=== PATIENT | male | born 1970 | race Caucasian/White ===

== ENCOUNTER 2025-03-14 16:27 | Emergency (ER) | payer BC, MEDICAID, SELFPAY ==
[2025-03-14 16:28] VITALS: BMI 29.8
--- NOTE | 2025-03-14 16:37 | XRR_ITS ---
PROCEDURE INFORMATION: Exam: XR Chest Exam date and time: 03/14/2025 5:11 PM Age: 54 years old Clinical indication: Injury or trauma; Fall; Blunt trauma (contusions or hematomas) TECHNIQUE: Imaging protocol: Radiologic exam of the chest. Views: 1 view. COMPARISON: CT cervical spin wo con* [id number] 03/14/2025 5:08 PM FINDINGS: Lungs: Low lung volumes with associated perihilar fullness and bibasilar compression. No focal consolidation. Pleural spaces: Unremarkable. No pleural effusion. No pneumothorax. Heart/Mediastinum: Unremarkable. No cardiomegaly. Bones/joints: Unremarkable. XR/XR chest 1V portable [id number] IMPRESSION: No acute cardiopulmonary abnormality.
--- NOTE | 2025-03-14 16:37 | CTR_ITS ---
PROCEDURE INFORMATION: Exam: CT Head Without Contrast Exam date and time: 03/14/2025 5:08 PM Age: 54 years old Clinical indication: Injury or trauma; History--pt presents with decreased loc [place] EMS reports patient had seizure in route and was given 2 MG ativan. Patient also has ETOH on board per EMS. Patient presenting in c-collar. Patent airway, unlabored respirations, and appropriate color. ; Additional info: Fall TECHNIQUE: Imaging protocol: Computed tomography of the head without contrast. Radiation optimization: All CT scans at this facility use at least one of these dose optimization techniques: automated exposure control; mA and/or kV adjustment per patient size (includes targeted exams where dose is matched to clinical indication); or iterative reconstruction. COMPARISON: CT cervical spin wo con* [id number] 03/14/2025 5:08 PM RADIATION DOSE METRICS: Total DLP (mGy-cm): 1250.1 FINDINGS: Brain: No acute intracranial hemorrhage. No territorial infarction. Cerebral ventricles: No ventriculomegaly. Paranasal sinuses: Moderate paranasal mucosal sinus thickening. Mastoid air cells: Visualized mastoid air cells are well aerated. Bones: Multiple displaced nasal bone fractures. Soft tissues: Unremarkable. PROCEDURE INFORMATION: Exam: CT Cervical Spine Without Contrast Exam date and time: 03/14/2025 5:08 PM Age: 54 years old Clinical indication: Injury or trauma; History--pt [place] EMS reports patient had seizure in route and was given 2 MG ativan. Patient also has ETOH on board per EMS. Patient presenting in c-collar. Patent airway, unlabored respirations, and appropriate color. ; Additional info: Fall TECHNIQUE: Imaging protocol: Computed tomography of the cervical spine without contrast. Radiation optimization: All CT scans at this facility use at least one of these dose optimization techniques: automated exposure control; mA and/or kV adjustment per patient size (includes targeted exams where dose is matched to clinical indication); or iterative reconstruction. COMPARISON: CT head wo con* [id number] 03/14/2025 5:08 PM RADIATION DOSE METRICS: Total DLP (mGy-cm): 265.9 FINDINGS: Bones: The odontoid and ring of C1 are intact. Moderate to severe multilevel degenerative disease of the cervical spine. Multilevel degenerative disc disease, facet joint arthropathy with associated foraminal stenosis and disc osteophyte complexes with associated effacement of the thecal sac most prominently seen at C5-C6 and C6-C7. Lungs: Moderate paraseptal emphysematous changes noted in the upper lobes bilaterally [id number]-[id number]-frak-left. Dependent atelectasis partially visualized. Esophagus: The esophagus is patulous, fluid-filled with circumferential esophageal wall thickening up to the level of the thoracic inlet. Thyroid: The visualized portions of the thyroid gland are unremarkable. Lymph nodes: Multiple prominent cervical lymph nodes none meeting pathological criteria. Soft tissues: Unremarkable. CT/CT head wo con* [id number] IMPRESSION: 1. No acute intracranial abnormality. 2. Multiple displaced nasal bone fractures. Correlate with point tenderness to assess acuity. IMPRESSION: 1. No acute cervical spine fracture or dislocation. 2. Moderate to severe multilevel degenerative disease of the cervical spine. 3. The esophagus is patulous with fluid/debris noted intraluminally up to the level of the thoracic inlet with circumferential esophageal wall thickening. Findings may represent reflux/esophagitis. This finding raises the risk for aspiration. 4. Paraseptal emphysematous changes noted at the lung apices [id number]-hffs-left.
--- NOTE | 2025-03-14 16:37 | CTR_ITS ---
PROCEDURE INFORMATION: Exam: CT Head Without Contrast Exam date and time: 03/14/2025 5:08 PM Age: 54 years old Clinical indication: Injury or trauma; History--pt [place] EMS reports patient had seizure in route and was given 2 MG ativan. Patient also has ETOH on board per EMS. Patient presenting in c-collar. Patent airway, unlabored respirations, and appropriate color. ; Additional info: Fall TECHNIQUE: Imaging protocol: Computed tomography of the head without contrast. Radiation optimization: All CT scans at this facility use at least one of these dose optimization techniques: automated exposure control; mA and/or kV adjustment per patient size (includes targeted exams where dose is matched to clinical indication); or iterative reconstruction. COMPARISON: CT cervical spin wo con* [id number] 03/14/2025 5:08 PM RADIATION DOSE METRICS: Total DLP (mGy-cm): 1250.1 FINDINGS: Brain: No acute intracranial hemorrhage. No territorial infarction. Cerebral ventricles: No ventriculomegaly. Paranasal sinuses: Moderate paranasal mucosal sinus thickening. Mastoid air cells: Visualized mastoid air cells are well aerated. Bones: Multiple displaced nasal bone fractures. Soft tissues: Unremarkable. PROCEDURE INFORMATION: Exam: CT Cervical Spine Without Contrast Exam date and time: 03/14/2025 5:08 PM Age: 54 years old Clinical indication: Injury or trauma; History--pt presents [place] EMS reports patient had seizure in route and was given 2 MG ativan. Patient also has ETOH on board per EMS. Patient presenting in c-collar. Patent airway, unlabored respirations, and appropriate color. ; Additional info: Fall TECHNIQUE: Imaging protocol: Computed tomography of the cervical spine without contrast. Radiation optimization: All CT scans at this facility use at least one of these dose optimization techniques: automated exposure control; mA and/or kV adjustment per patient size (includes targeted exams where dose is matched to clinical indication); or iterative reconstruction. COMPARISON: CT head wo con* [id number] 03/14/2025 5:08 PM RADIATION DOSE METRICS: Total DLP (mGy-cm): 265.9 FINDINGS: Bones: The odontoid and ring of C1 are intact. Moderate to severe multilevel degenerative disease of the cervical spine. Multilevel degenerative disc disease, facet joint arthropathy with associated foraminal stenosis and disc osteophyte complexes with associated effacement of the thecal sac most prominently seen at C5-C6 and C6-C7. Lungs: Moderate paraseptal emphysematous changes noted in the upper lobes bilaterally trpkk-[id number]-qbop-left. Dependent atelectasis partially visualized. Esophagus: The esophagus is patulous, fluid-filled with circumferential esophageal wall thickening up to the level of the thoracic inlet. Thyroid: The visualized portions of the thyroid gland are unremarkable. Lymph nodes: Multiple prominent cervical lymph nodes none meeting pathological criteria. Soft tissues: Unremarkable. CT/CT cervical spin wo con* [id number] IMPRESSION: 1. No acute intracranial abnormality. 2. Multiple displaced nasal bone fractures. Correlate with point tenderness to assess acuity. IMPRESSION: 1. No acute cervical spine fracture or dislocation. 2. Moderate to severe multilevel degenerative disease of the cervical spine. 3. The esophagus is patulous with fluid/debris noted intraluminally up to the level of the thoracic inlet with circumferential esophageal wall thickening. Findings may represent reflux/esophagitis. This finding raises the risk for aspiration. 4. Paraseptal emphysematous changes noted at the lung apices ohdzg-[id number]-iokx-left.
--- NOTE | 2025-03-14 16:38 | ECG_ITS ---
[facility] [employer] Test Date: 2025-03-14 Pat Name: Colin Muhammad Department: Room: Gender: Male Analyst Sales: : 1970 Requested By: Doris Lozoya Order Number: [id number] Regina MD: Nhi Jj M.D. Measurements Intervals O'Brien Rate: 69 P: 17 MN: 161 QRS: 51 QRSD: 85 T: 48 QT: 357 QTc: 383 Interpretive Statements SINUS RHYTHM LOW QRS VOLTAGE IN PRECORDIAL LEADS [QRS DEFLECTION < 1.0 mV IN CHEST LEADS] No previous ECG available for comparison Electronically Signed On 03-16-2025 06:33:53 CDT by Nhi Jj M.D. [email or web address]
[2025-03-14 16:41] VITALS: BP 130/89; PULSE 79; RESP 19; TEMP 36.7; O2SAT 97
--- NOTE | 2025-03-14 16:42 | W.ED.FALL ---
Documented by User: Doris Lozoya MD 03/15/25 10:05 HPI - Fall General: Chief Complaint: Fall Stated Complaint: seizure; fall Time Seen by Provider: 03/14/25 16:29 Source: EMS Mode of arrival: EMS Limitations: altered mental status History of Present Illness: 54-year-old male is brought in patient was at a park he had been drinking heavily he admitted to EMS also has a history of drug abuse and he states that he had fell backwards hit his head bystanders called EMS patient in the c-collar EMS states that he had had some shaking and was combative unsure if he had a seizure but did give him 2 mg of Ativan he is he is able to tell me his name but not really able answer any other questions Review of Systems General: Reports: ROS unobtainable due to mental status Physical Exam Const: COMMON NORMALS: alert; negative for patient oriented x3 EXAM LIMITATIONS: altered mental status ORIENTATION/CONSCIOUSNESS: Yes oriented to person; not oriented to place and not oriented to time HENMT: COMMON NORMALS: normocephalic and atraumatic HEAD & SCALP: normocephalic and atraumatic Eye: COMMON NORMALS: Equal, round and reactive pupils present and conjunctivae normal CONJUNCTIVA: Yes conjunctivae normal PUPIL: Yes Equal, round and reactive pupils present Neck/C-Spine: OTHER: In c-collar Chest: COMMONS NORMALS: normal inspection of the chest and normal palpation of entire chest wall Resp: COMMON NORMALS: normal respiratory effort, No retractions, No use of accessory muscles and clear to auscultation bilaterally AUSCULTATION: clear to auscultation bilaterally Cardio: COMMON NORMALS: regular rate, regular rhythm and No murmurs present (Cardio) RATE: regular rate RHYTHM: regular rhythm GI: COMMON NORMALS: Normal to inspection, nondistended, normoactive bowel sounds present, Soft to palpation, non-tender and no masses PALPATION: Yes Soft to palpation Extremity: COMMON NORMALS: normal to inspection and full ROM Neuro: COMMON NORMALS: moves all extremities and no focal motor deficits; negative for patient oriented x3 SENSORIUM/ORIENTATION: Yes alert, Yes oriented to person, No oriented to place and No oriented to time Psych: COMMON NORMALS: cooperative Skin: COMMON NORMALS: no rashes or lesions noted and no wounds GENERAL SKIN EXAM: no rashes or lesions noted Course Vital Signs: Vital signs: Vital Signs Temperature 98.1 F 03/14/25 16:41 Pulse Rate 86 03/14/25 19:53 Respiratory Rate 16 03/14/25 19:53 Blood Pressure 162/63 03/14/25 19:53 Pulse Oximetry 92 03/14/25 19:53 Oxygen Delivery Me thod Room Air 03/14/25 19:53 Oxygen Flow Rate 2 03/14/25 16:41 MDM - Fall Medical Decision Making Patient's imaging is negative he is quite intoxicated his care is turned over to Dr. Luque at this time Medical Records I reviewed the patient's medical records. Lab Data I reviewed the patient's lab results. 03/14/25 16:39 03/14/25 17:30 Radiology Impressions Cervical Spine CT 03/14/25 16:37 IMPRESSION: 1. No acute intracranial abnormality. 2. Multiple displaced nasal bone fractures. Correlate with point tenderness to assess acuity. IMPRESSION: 1. No acute cervical spine fracture or dislocation. 2. Moderate to severe multilevel degenerative disease of the cervical spine. 3. The esophagus is patulous with fluid/debris noted intraluminally up to the level of the thoracic inlet with circumferential esophageal wall thickening. Findings may represent reflux/esophagitis. This finding raises the risk for aspiration. 4. Paraseptal emphysematous changes noted at the lung apices [id number]-[id number]-left. Chest X-Ray 03/14/25 16:37 IMPRESSION: No acute cardiopulmonary abnormality. Head CT 03/14/25 16:37 IMPRESSION: 1. No acute intracranial abnormality. 2. Multiple displaced nasal bone fractures. Correlate with point tenderness to assess acuity. IMPRESSION: 1. No acute cervical spine fracture or dislocation. 2. Moderate to severe multilevel degenerative disease of the cervical spine. 3. The esophagus is patulous with fluid/debris noted intraluminally up to the level of the thoracic inlet with circumferential esophageal wall thickening. Findings may represent reflux/esophagitis. This finding raises the risk for aspiration. 4. Paraseptal emphysematous changes noted at the lung apices smnlg-kqkxnsy-egzn-left. Laboratory Results WBC 9.26 10^3/uL (3.29-11.43) 03/14/25 16:39 RBC 4.99 10^6/uL (3.85-5.65) 03/14/25 16:39 Hgb 13.60 g/dL (11.27-16.99) 03/14/25 16:39 Hct 42.5 % (37-53) 03/14/25 16:39 MCV 85.2 fl (82-101) 03/14/25 16:39 MCH 27.3 pg (27-33) 03/14/25 16:39 MCHC 32.0 g/dL (30-55) 03/14/25 16:39 RDW 14.6 % (12.1-15.1) 03/14/25 16:39 Plt Count 308 10^3/cmm (157-399) 03/14/25 16:39 MPV 10.3 fL (7.4-10.4) 03/14/25 16:39 Neut % (Auto) 53.5 % 03/14/25 16:39 Lymph % (Auto) 34.2 % 03/14/25 16:39 [place] % (Auto) 7.8 % 03/14/25 16:39 Eos % (Auto) 3.8 % 03/14/25 16:39 Baso % (Auto) 0.4 % 03/14/25 16:39 Neut # (Auto) 4.95 10^3/uL (1.8-7.7) 03/14/25 16:39 Lymph # (Auto) 3.2 10^3/uL (0.8-4.8) 03/14/25 16:39 [place] # (Auto) 0.7 10^3/uL (0.2-0.9) 03/14/25 16:39 Eos # (Auto) 0.4 10^3/uL (0.0-0.8) 03/14/25 16:39 Baso # (Auto) 0.0 10^3/uL (0.0-0.1) 03/14/25 16:39 Nucleated RBC % (auto) 0 % 03/14/25 16:39 Nucleated RBCs # 0.0 /100WBC 03/14/25 16:39 Sodium 147 mmol/L (136-145) H 03/14/25 17:30 Potassium 4.2 mmol/L (3.5-5.1) 03/14/25 17:30 Chloride 108 mmol/L (98-107) H 03/14/25 17:30 Carbon Dioxide 26 mmol/L (22-29) 03/14/25 17:30 Anion Gap 17.2 (5-19) 03/14/25 17:30 BUN 7 mg/dL (6-20) 03/14/25 17:30 Creatinine 0.7 mg/dL (0.7-1.2) 03/14/25 17:30 GFR Calculation 118.4 mL/min (90-130) 03/14/25 17:30 Glucose 102 mg/dL (65-115) 03/14/25 17:30 Calculated Osmolality 302 mOsm/kg (285-295) H 03/14/25 17:30 Calcium 8.6 mg/dL (8.5-10.5) 03/14/25 17:30 Total Bilirubin 0.2 mg/dL (0.15-1.2) 03/14/25 17:30 AST 16 U/L (0-40) 03/14/25 17:30 ALT 15 U/L (0-41) 03/14/25 17:30 Alkaline Phosphatase 75 U/L (40-130) 03/14/25 17:30 Total Protein 6.9 g/dL (6.6-8.7) 03/14/25 17:30 Albumin 4.3 g/dL (3.5-5.2) 03/14/25 17:30 Globulin 2.6 g/dL (1.3-4.6) 03/14/25 17:30 Ethyl Alcohol 357 mg/dL (0-10) H* 03/14/25 17:30 All radiology interpretation(s) finalized by discharge Discharge Plan Discharge Patient Disposition: Home Clinical Impression: Alcohol intoxication, Closed fracture nasal bone Condition: Stable Discharge Orders: Discharge ED (Routine); Ordered 03/14/25 Ordered By: Oli Luque Patient Instructions: Nasal Fracture (ED), Alcohol Intoxication (ED), Opioid Safety, Pain Management Activity Restrictions/Additional Instructions: Abstain from alcohol. Call your doctor tomorrow. You will need follow-up appointment regarding your broken nose. Return for problems. Print Language: Cook Islander Coding Level of Care Code ED Division Service Manager for Chg Fwd Documented by User: Oli Luque DO 03/15/25 20:42 HPI - Fall General: Chief Complaint: Fall Stated Complaint: seizure; fall Time Seen by Provider: 03/14/25 16:29 Course Vital Signs: Vital signs: Vital Signs Temperature 98.1 F 03/14/25 16:41 Pulse Rate 86 03/14/25 19:53 Respiratory Rate 16 03/14/25 19:53 Blood Pressure 162/63 03/14/25 19:53 Pulse Oximetry 92 03/14/25 19:53 Oxygen Delivery Me thod Room Air 03/14/25 19:53 Oxygen Flow Rate 2 03/14/25 16:41 MDM - Fall Medical Decision Making Patient's imaging is negative he is quite intoxicated his care is turned over to Dr. Luque at this time This patient was checked out to me at shift change. he was quite intoxicated on arrival. He was agitated, belligerent. He was given intravenous haldol, and has slept for a few hours. He is awake currently. And he's compliant here and he has walked in the ER without problems and unassisted. He will be discharged home with a sober adult. To return for any problems. Lab Data 03/14/25 16:39 03/14/25 17:30 Radiology Impressions Cervical Spine CT 03/14/25 16:37 IMPRESSION: 1. No acute intracranial abnormality. 2. Multiple displaced nasal bone fractures. Correlate with point tenderness to assess acuity. IMPRESSION: 1. No acute cervical spine fracture or dislocation. 2. Moderate to severe multilevel degenerative disease of the cervical spine. 3. The esophagus is patulous with fluid/debris noted intraluminally up to the level of the thoracic inlet with circumferential esophageal wall thickening. Findings may represent reflux/esophagitis. This finding raises the risk for aspiration. 4. Paraseptal emphysematous changes noted at the lung apices cxbij-mproyai-ufjh-left. Chest X-Ray 03/14/25 16:37 IMPRESSION: No acute cardiopulmonary abnormality. Head CT 03/14/25 16:37 IMPRESSION: 1. No acute intracranial abnormality. 2. Multiple displaced nasal bone fractures. Correlate with point tenderness to assess acuity. IMPRESSION: 1. No acute cervical spine fracture or dislocation. 2. Moderate to severe multilevel degenerative disease of the cervical spine. 3. The esophagus is patulous with fluid/debris noted intraluminally up to the level of the thoracic inlet with circumferential esophageal wall thickening. Findings may represent reflux/esophagitis. This finding raises the risk for aspiration. 4. Paraseptal emphysematous changes noted at the lung apices daskv-rjvtakk-smvh-left. Laboratory Results WBC 9.26 10^3/uL (3.29-11.43) 03/14/25 16:39 RBC 4.99 10^6/uL (3.85-5.65) 03/14/25 16:39 Hgb 13.60 g/dL (11.27-16.99) 03/14/25 16:39 Hct 42.5 % (37-53) 03/14/25 16:39 MCV 85.2 fl (82-101) 03/14/25 16:39 MCH 27.3 pg (27-33) 03/14/25 16:39 MCHC 32.0 g/dL (30-55) 03/14/25 16:39 RDW 14.6 % (12.1-15.1) 03/14/25 16:39 Plt Count 308 10^3/cmm (157-399) 03/14/25 16:39 MPV 10.3 fL (7.4-10.4) 03/14/25 16:39 Neut % (Auto) 53.5 % 03/14/25 16:39 Lymph % (Auto) 34.2 % 03/14/25 16:39 [place] % (Auto) 7.8 % 03/14/25 16:39 Eos % (Auto) 3.8 % 03/14/25 16:39 Baso % (Auto) 0.4 % 03/14/25 16:39 Neut # (Auto) 4.95 10^3/uL (1.8-7.7) 03/14/25 16:39 Lymph # (Auto) 3.2 10^3/uL (0.8-4.8) 03/14/25 16:39 [place] # (Auto) 0.7 10^3/uL (0.2-0.9) 03/14/25 16:39 Eos # (Auto) 0.4 10^3/uL (0.0-0.8) 03/14/25 16:39 Baso # (Auto) 0.0 10^3/uL (0.0-0.1) 03/14/25 16:39 Nucleated RBC % (auto) 0 % 03/14/25 16:39 Nucleated RBCs # 0.0 /100WBC 03/14/25 16:39 Sodium 147 mmol/L (136-145) H 03/14/25 17:30 Potassium 4.2 mmol/L (3.5-5.1) 03/14/25 17:30 Chloride 108 mmol/L (98-107) H 03/14/25 17:30 Carbon Dioxide 26 mmol/L (22-29) 03/14/25 17:30 Anion Gap 17.2 (5-19) 03/14/25 17:30 BUN 7 mg/dL (6-20) 03/14/25 17:30 Creatinine 0.7 mg/dL (0.7-1.2) 03/14/25 17:30 GFR Calculation 118.4 mL/min (90-130) 03/14/25 17:30 Glucose 102 mg/dL (65-115) 03/14/25 17:30 Calculated Osmolality 302 mOsm/kg (285-295) H 03/14/25 17:30 Calcium 8.6 mg/dL (8.5-10.5) 03/14/25 17:30 Total Bilirubin 0.2 mg/dL (0.15-1.2) 03/14/25 17:30 AST 16 U/L (0-40) 03/14/25 17:30 ALT 15 U/L (0-41) 03/14/25 17:30 Alkaline Phosphatase 75 U/L (40-130) 03/14/25 17:30 Total Protein 6.9 g/dL (6.6-8.7) 03/14/25 17:30 Albumin 4.3 g/dL (3.5-5.2) 03/14/25 17:30 Globulin 2.6 g/dL (1.3-4.6) 03/14/25 17:30 Ethyl Alcohol 357 mg/dL (0-10) H* 03/14/25 17:30 Discharge Plan Discharge Patient Disposition: Home Clinical Impression: Alcohol intoxication, Closed fracture nasal bone Condition: Stable Discharge Orders: Discharge ED (Routine); Ordered 03/14/25 Ordered By: Oli Luque Patient Instructions: Nasal Fracture (ED), Alcohol Intoxication (ED), Opioid Safety, Pain Management Activity Restrictions/Additional Instructions: Abstain from alcohol. Call your doctor tomorrow. You will need follow-up appointment regarding your broken nose. Return for problems. Print Language: [place]er Coding Level of Care Code ED Division Service Manager for Diann Clark
[2025-03-14 16:45] LABS: Basophils % 0.4 %; Eosinophils # 0.4 10^3/uL (0.0-0.8); Eosinophils % 3.8 %; Hematocrit 42.5 % (37-53); Lymphocytes # 3.2 10^3/uL (0.8-4.8); Lymphocytes % 34.2 %; Mean Corpuscular Hemoglobin 27.3 pg (27-33); Mean Corpuscular Volume 85.2 fl (82-101); Mean Platelet Volume 10.3 fL (7.4-10.4); Monocytes # 0.7 10^3/uL (0.2-0.9); Monocytes % 7.8 %; Neutrophils # 4.95 10^3/uL (1.8-7.7); Neutrophils % 53.5 %; Nucleated Red Blood Cells % 0 %; Platelet Count 308 10^3/cmm (157-399); Red Blood Count 4.99 10^6/uL (3.85-5.65); Red Cell Distribution Width 14.6 % (12.1-15.1); White Blood Count 9.26 10^3/uL (3.29-11.43)
[2025-03-14 17:55] LABS: Alanine Aminotransferase 15 U/L (0-41); Albumin Level 4.3 g/dL (3.5-5.2); Alkaline Phosphatase 75 U/L (40-130); Anion Gap 17.2 (5-19); Aspartate Amino Transferase 16 U/L (0-40); Blood Urea Nitrogen 7 mg/dL (6-20); Calcium 8.6 mg/dL (8.5-10.5); Carbon Dioxide 26 mmol/L (22-29); Chloride 108 mmol/L (98-107); Creatinine Clr Calc Pharmacy 150.9898; Globulin 2.6 g/dL (1.3-4.6); Glomerular Filtration Rate 118.4 mL/min (90-130); Glucose 102 mg/dL (65-115); Osmolality Calculated 302 mOsm/kg (285-295); Potassium 4.2 mmol/L (3.5-5.1); Sodium 147 mmol/L (136-145); Total Bilirubin 0.2 mg/dL (0.15-1.2); Total Protein 6.9 g/dL (6.6-8.7)
[2025-03-14 17:57] LABS: Alcohol Level 357 mg/dL (0-10)
[2025-03-14] MEDS: thiamine 100 mg/mL 2mL SDV IVP (18:09)
[2025-03-14] MEDS: haloperidol inj 5 mg/mL INJ 1 mL IVP (18:10)
[2025-03-14 18:32] VITALS: BP 93/60; PULSE 76; RESP 17; O2SAT 98
[2025-03-14 19:53] VITALS: BP 162/63; PULSE 86; RESP 16; O2SAT 92
== END 2025-03-14 21:40 | disposition home or self-care (01) ==
PROVIDERS: Emergency Medicine; Emergency Provider Emergency Medicine
DX: S02.2XXA Fracture of nasal bones, initial encounter for closed fracture (principal); R41.82 Altered mental status, unspecified; F10.129 Alcohol abuse with intoxication, unspecified; W18.30XA Fall on same level, unspecified, initial encounter; Y92.830 Public park as the place of occurrence of the external cause
CPT/HCPCS: 36415; 70450; 71045; 72125; 80053; 80307; 85025; 93005; 96374; 96375; 99285; J1630; J3411

== ENCOUNTER 2025-05-24 10:45 | Inpatient (IN) | payer BC, MEDICAID, SELFPAY ==
[2025-05-24 10:50] VITALS: BMI 23.0
[2025-05-24 10:58] VITALS: BP 131/80; PULSE 95; RESP 16; TEMP 36.7; O2SAT 96
--- NOTE | 2025-05-24 11:06 | ED.C_ITS ---
HPI - Psych 2 General: Chief Complaint: Psychiatric Symptoms Stated Complaint: etoh, SI Time Seen by Provider: 05/24/25 10:53 History of Present Illness: 54-year-old male presents to the emergen cy room acutely intoxicated accompanied by PD brought in via EMS. He is highly intoxicated difficult to get history from he is intermittently angry and tearful. He had stated he wanted to kill himself using a gun and he made similar statements to me he denies having done anything to actually harm himself at this point. He has not been hospitalized at our facility for but he states he has been hospitalized for suicidal ideation in the past he evidently had gone through a alcohol recovery program somewhere else in the state despite this he started drinking again. Related Data Home Medications ?Medication ?Instructions ?Recorded ?Confirmed ibuprofen 800 mg tablet 800 mg PO DAILY PRN Pain 05/24/25 omeprazole 20 mg capsule,delayed 20 mg PO DAILY 05/24/25 release terbinafine HCl 250 mg tablet 250 mg PO DAILY 05/24/25 05/24/25 Review of Systems 2 Const: Denies: fever(s) or chills Card: Denies: chest pain Resp: Denies: dyspnea GI: Denies: abdominal pain : Denies: dysuria, urinary frequency or urinary urgency Musc: Denies: neck pain or back pain Skin/Breast: Denies: rash Physical Exam 2 Const: COMMON NORMALS: no acute distress GENERAL APPEARANCE: cooperative and comfortable ORIENTATION/CONSCIOUSNESS: Yes awake HENMT: COMMON NORMALS: normocephalic, atraumatic and hearing grossly normal bilaterally HEAD & SCALP: normocephalic and atraumatic Resp: COMMON NORMALS: normal respiratory effort, No retractions, No use of accessory muscles and clear to auscultation bilaterally AUSCULTATION: clear to auscultation bilaterally Cardio: COMMON NORMALS: regular rate, regular rhythm and No murmurs present (Cardio) RATE: regular rate RHYTHM: regular rhythm GI: COMMON NORMALS: Soft to palpation and No hepatosplenomegaly present A USCULTATION: Yes normoactive bowel sounds PALPATION: Yes Soft to palpation, No Tenderness to palpation present (GI), No Guarding due to palpation present (GI) and Yes No hepatosplenomegaly present Extremity: COMMON NORMALS: normal to inspection, capillary refill normal, no clubbing, cyanosis or edema, no calf tenderness and no pedal edema Skin: COMMON NORMALS: no rashes or lesions noted GENERAL SKIN EXAM: no rashes or lesions noted Course 2 Vital Signs: Vital signs: Vital Signs Temperature 98.0 F 05/24/25 13:44 Pulse Rate 83 05/24/25 14:14 Respiratory Rate 18 05/24/25 14:14 Blood Pressure 138/84 05/24/25 14:14 Pulse Oximetry 98 05/24/25 14:14 Oxygen Delivery Me thod Room Air 05/24/25 14:14 MDM - Psych Medical Decision Making Patient is extremely intoxicated but he is awake alert ambulatory is able to urinate using a urinal while standing at the bedside. Is looking at his previous ER visit he has a very high tolerance for alcohol intoxication he was at upper 300s previously as well. He is suicidal at this time. Will admit him start him on a CIWA protocol he was given Ativan for some mild agitation while in the emergency room. He is still awake alert and interactive able to manage ambulate and care for himself at this time. Patient on 96-hour hold. Medical Records I reviewed the patient's medical records. Lab Data I reviewed the patient's lab results. 05/24/25 11:22 05/24/25 11:22 Laboratory Results WBC 5.55 10^3/uL (3.29-11.43) 05/24/25 11:22 RBC 4.57 10^6/uL (3.85-5.65) 05/24/25 11:22 Hgb 13.10 g/dL (11.27-16.99) 05/24/25 11:22 Hct 41.2 % (37-53) 05/24/25 11:22 MCV 90.2 fl (82-101) 05/24/25 11:22 MCH 28.7 pg (27-33) 05/24/25 11:22 MCHC 31.8 g/dL (30-55) 05/24/25 11:22 RDW 15.3 % (12.1-15.1) H 05/24/25 11:22 Plt Count 238 10^3/cmm (157-399) 05/24/25 11:22 MPV 9.5 fL (7.4-10.4) 05/24/25 11:22 Neut % (Auto) 32.2 % 05/24/25 11:22 Lymph % (Auto) 43.1 % 05/24/25 11:22 [place] % (Auto) 15.3 % 05/24/25 11:22 Eos % (Auto) 8.3 % 05/24/25 11:22 Baso % (Auto) 0.9 % 05/24/25 11:22 Neut # (Auto) 1.79 10^3/uL (1.8-7.7) L 05/24/25 11:22 Lymph # (Auto) 2.4 10^3/uL (0.8-4.8) 05/24/25 11:22 [place] # (Auto) 0.9 10^3/uL (0.2-0.9) 05/24/25 11:22 Eos # (Auto) 0.5 10^3/uL (0.0-0.8) 05/24/25 11:22 Baso # (Auto) 0.1 10^3/uL (0.0-0.1) 05/24/25 11:22 Nucleated RBC % (auto) 0 % 05/24/25 11:22 Nucleated RBCs # 0.0 /100WBC 05/24/25 11:22 Sodium 141 mmol/L (136-145) 05/24/25 11:22 Potassium 4.1 mmol/L (3.5-5.1) 05/24/25 11:22 Chloride 108 mmol/L (98-107) H 05/24/25 11:22 Carbon Dioxide 23 mmol/L (22-29) 05/24/25 11:22 Anion Gap 14.1 (5-19) 05/24/25 11:22 BUN 6 mg/dL (6-20) 05/24/25 11:22 Creatinine 0.7 mg/dL (0.7-1.2) 05/24/25 11:22 GFR Calculation 118.4 mL/min (90-130) 05/24/25 11:22 Glucose 87 mg/dL (65-115) 05/24/25 11:22 Calculated Osmolality 289 mOsm/kg (285-295) 05/24/25 11:22 Calcium 8.3 mg/dL (8.5-10.5) L 05/24/25 11:22 Total Bilirubin 0.2 mg/dL (0.15-1.2) 05/24/25 11:22 AST 20 U/L (0-40) 05/24/25 11:22 ALT 16 U/L (0-41) 05/24/25 11:22 Alkaline Phosphatase 74 U/L (40-130) 05/24/25 11:22 Total Protein 6.6 g/dL (6.6-8.7) 05/24/25 11:22 Albumin 4.1 g/dL (3.5-5.2) 05/24/25 11:22 Globulin 2.5 g/dL (1.3-4.6) 05/24/25 11:22 Urine Color Yellow (Yellow) 05/24/25 11:26 Urine Appearance Clear (CLEAR) 05/24/25 11:26 Urine pH 5.5 (5-7) 05/24/25 11:26 Ur Specific Ceylon 1.004 (1.005-1.030) L 05/24/25 11:26 Urine Protein Negative (Negative) 05/24/25 11:26 Urine Glucose (UA) Negative (Normal) 05/24/25 11:26 Urine Ketones Negative (Negative) 05/24/25 11:26 Urine Blood Negative (Negative) 05/24/25 11:26 Urine Nitrate Negative (Negative) 05/24/25 11:26 Urine Bilirubin Negative (Negative) 05/24/25 11:26 Urine Urobilinogen 0.2 mg/dL (Negative) 05/24/25 11:26 Ur Leukocyte Esterase Negative (Negative) 05/24/25 11:26 Urine RBC 0-2 /hpf (0-2) 05/24/25 11:26 Urine WBC 0-5 /hpf (0-5) 05/24/25 11:26 Ur Squamous Epith Cells 0-5 /hpf (0-5) 05/24/25 11:26 Amorphous Sediment Not Reportable 05/24/25 11:26 Urine Bacteria None seen /hpf (NONE) 05/24/25 11:26 Hyaline Casts 0-4 /lpf H 05/24/25 11:26 Salicylates < 0.3 mg/dL (3-10) L 05/24/25 11:22 Urine Opiates Screen Negative ng/mL (Negative) 05/24/25 11:26 Acetaminophen < 5.0 ug/mL (10-30) L 05/24/25 11:22 Ur Barbiturates Screen Negative ng/mL (Negative) 05/24/25 11:26 Ur Phencyclidine Scrn Negative ng/mL (Negative) 05/24/25 11:26 Ur Amphetamines Screen Negative ng/mL (Negative) 05/24/25 11:26 U Benzodiazepines Scrn Negative ng/mL (Negative) 05/24/25 11:26 Urine Cocaine Screen Negative ng/mL (Negative) 05/24/25 11:26 U Marijuana (THC) Screen Negative ng/mL (Negative) 05/24/25 11:26 Ethyl Alcohol 379 mg/dL (0-10) H* 05/24/25 11:22 No radiology studies performed this visit Discharge Plan Discharge Patient Disposition: Admitted As Inpatient Admit Provider: Mark Frye Clinical Impression: Suicidal ideation, Alcohol intoxication Condition: Stable Coding Level of Care Code ED Surveyor [employer]ing for Diann Clark
[2025-05-24 11:28] LABS: Hematocrit 41.2 % (37-53); Hemoglobin 13.10 g/dL (11.27-16.99); Mean Corpuscular HGB Conc 31.8 g/dL (30-55); Mean Corpuscular Hemoglobin 28.7 pg (27-33); Mean Corpuscular Volume 90.2 fl (82-101); Nucleated Red Blood Cells % 0 %; Platelet Count 238 10^3/cmm (157-399); Red Blood Count 4.57 10^6/uL (3.85-5.65); White Blood Count 5.55 10^3/uL (3.29-11.43)
[2025-05-24 11:47] LABS: Glucose Urine UA Negative (Normal); Nitrate Urine Negative (Negative); Specific Gravity, Urine 1.004 (1.005-1.030)
[2025-05-24 11:51] LABS: Alanine Aminotransferase 16 U/L (0-41); Albumin Level 4.1 g/dL (3.5-5.2); Alkaline Phosphatase 74 U/L (40-130); Anion Gap 14.1 (5-19); Aspartate Amino Transferase 20 U/L (0-40); Blood Urea Nitrogen 6 mg/dL (6-20); Calcium 8.3 mg/dL (8.5-10.5); Carbon Dioxide 23 mmol/L (22-29); Chloride 108 mmol/L (98-107); Creatinine Clr Calc Pharmacy 135.1505; Globulin 2.5 g/dL (1.3-4.6); Glucose 87 mg/dL (65-115); Osmolality Calculated 289 mOsm/kg (285-295); Potassium 4.1 mmol/L (3.5-5.1); Sodium 141 mmol/L (136-145); Total Protein 6.6 g/dL (6.6-8.7)
[2025-05-24 11:54] LABS: PCP Screen Urine Negative (Negative)
[2025-05-24 12:03] LABS: Add Urine Microscopic? YES
[2025-05-24 12:04] LABS: Acetaminophen < 5.0 ug/mL (10-30); Salicylate < 0.3 mg/dL (3-10)
[2025-05-24 12:05] LABS: Alcohol Level 379 mg/dL (0-10)
[2025-05-24] MEDS: LORazepam 1 MG/0.5 ML injection 2 MG IM (12:10)
--- NOTE | 2025-05-24 12:30 | PC.NURSE ---
PATIENT ATTEMPTING TO STRANGLE HIMSELF WITH BLANKET. MISHEL, EQUALIZER OPERATOR, PRESENT AT BEDSIDE TO STOP PATIENT ACTIVITY.
[2025-05-24 12:42] VITALS: PULSE 92; O2SAT 96
[2025-05-24 12:52] VITALS: BP 130/88; PULSE 85; RESP 18; TEMP 37.1; O2SAT 97
--- NOTE | 2025-05-24 13:15 | PC.NURSE ---
96 hr rights reviewed with pt @5970 with assistance of [facility] emergency response officer Kevin Joseph All education reviewed at this time. Pt verbalized understanding to hold parameters. Pt copy was left @bedside with pt. Pt verbalized no needs to HS at this time and declined a snack or drink when asked. No further needs.
[2025-05-24 13:44] VITALS: BP 137/75; PULSE 86; RESP 18; TEMP 36.7; O2SAT 96
--- NOTE | 2025-05-24 14:00 | PC.NURSE ---
went to speak with pt about speaking with social worker clinical about his belongings being at the hotel. when walked into room pt urinating in the sink for the second time. informed pt where bathroom was again. pt stumbled assisted back to bed. pt then stated he would like to jump through the window and kill his self. when asked why pt wanted to do that he could not give me a clear answer. instructed pt to stay in bed and rest.
--- NOTE | 2025-05-24 14:05 | PC.NURSE ---
At approximately 1350 pt was observed in room w/ no pants on peeing in the sink, this RN and the FLOOR COVERING LAYER instructed the pt to put his pants back on. The pt attempted to put his scrub pants back on and fell slightly onto his bottom. This RN, a PLASTIC PARTS FABRICATOR TRIMMER and the FLOOR COVERING LAYER helped the pt back onto the bed and vitals were taken. BP 137/75 O2 96 HR 86 RR 18. The Pt did not have any observable injuries. Dr. Frye/supply manager/smokehouse worker/charge nurse notified.
--- NOTE | 2025-05-24 14:09 | PC.NURSE ---
At approximately 1403, a pt came up to the nurses station window to inform the staff that the pt was stating help in his room. The pt was observed laying in the floor on his fall mat that was placed next to his bed. The pt rolled over onto all fours and attempted to raise himself up to the bed. Staff helped the pt to sit on the bed and vitals were performed. BP 138/84 HR 83 RR 18 O2 98. Pt did not have any visible/stated injuries. The warehouse hand was contacted for initiation of a 1:1 sitter for continuous falls. The Specimen Collector/doctor were contacted for assessment/consultation for possible transfer to a medical floor to sober up.
[2025-05-24 14:14] VITALS: BP 138/84; PULSE 83; RESP 18; O2SAT 98
--- NOTE | 2025-05-24 14:49 | PC.NURSE ---
@8709 recieved report from SCIENCE TECHNICIAN Maria Del Rosario Bergman. when asked about pt high etoh level of 379 this gag writer was informed by ED staff scientist that there was no policy about etoh levels anymore and that it was up to our decretion wether to accept him. When asked how pt was acting Rn stated he was fine that he had ups and downs when asked what that meant Rn Pacheco stated that well he would throw himself off the bed but she gave him 2 mg ativan IM and he was fine now. This gag writer was not informed of prior incident reported below during report. Before arriving to our unit per Rn note @7540 pt -( Colin Muhammad J Male : 1970 MedRec# [id number] 05/24/25 12:30 - Nurse Note by Maria Del Rosario Melissa RN Acct Num: [id number] : 1970 Patient Age: 54 PATIENT ATTEMPTING TO STRANGLE HIMSELF WITH BLANKET. MISHEL, SHODER FILLER, PRESENT AT BEDSIDE TO STOP PATIENT ACTIVITY. Initialized on 05/24/25 12:30 - END OF NOTE) Since arriving to unit pt has fallen on floor twice, urinated in sink. now for his saftey requires a 1:1 sitter for his saftey. informed household chores, community nutrition educator, of incidents that occured.
--- NOTE | 2025-05-24 18:01 | PC.NURSE ---
pt requested this staff member to call [facility] to speak with Darren Pepper about his belongings. this staff member called [phone] and spoke with Mr. Vega who stated Mr. Muhammad belongings were sacked up and in the office ready for him to garbage pick up man when he is ready. Informed pt of statement made about belongings.
--- NOTE | 2025-05-24 20:20 | PC.NURSE ---
CIWA PATIENT SCORES 10 ON CIWA SCALE. ATIVAN 2MG PO GIVEN.
[2025-05-24 20:26] VITALS: BP 129/78; PULSE 89; RESP 17; TEMP 36.5; O2SAT 90
--- NOTE | 2025-05-24 21:00 | PC.NURSE ---
PATIENT HAS HAD EXTRA TRAY FOR EVENING MEAL. IS NOW RESTING QUIETLY WITH BOTH EYES CLOSED. CIWA SCORE IS 0 AT THIS TIME.
[2025-05-25 06:40] VITALS: BP 124/81; PULSE 87; RESP 16; TEMP 36.6; O2SAT 96
[2025-05-25] MEDS: multivitamin therapeutic Tablet 1 TAB PO (09:20)
--- NOTE | 2025-05-25 11:34 | W.PM.NPUH&PS ---
Providers/Chief Complaint Admitting Physician: Mark Frye MD Chief Complaint: etoh, SI HPI NPU History of Present Illness Colin Muhammad is a 54 year old male who presented to the emergency department with a blood alcohol level of 379 with the patient endorsing having thoughts of wanting to kill himself by using a gun. The patient was admitted involuntarily to the neuropsychiatric unit for further evaluation and treatment. On interview, the patient had reported that he had relapsed and has been using alcohol for primarily on the weekends. He reports that he has been consuming alcohol since the age of 15. He reports the longest period of sobriety was approximately 1-1/2 years. He states that he has been working and living at a motel in [place] for the past 4 months. He had stated that prior to that time he had been at [facility] attempting to reside there and maintain sobriety. He states that the presence of drugs at the [facility] had led him to leave that location. He reports that he has been attending [facility] substance abuse program in [place] and had been clean for more than a year having graduated that program in November 2024. He reports that in the past he has been admitted briefly for suicidal ideation to psychiatric unit several years ago. He had reported no history of alcohol related withdrawal seizures. He had reported having a high tolerance for alcohol and reported some history of having shakes. He has endorsed feeling more depressed and hopeless recently. He reports low energy and low motivation. He denied any history of psychosis. He did not endorse any history of ingris. He denied any history of nightmares or flashbacks. He does report continued alcohol use despite adverse consequences. Inpatient psychiatric history: He reports inpatient hospitalization in [place] in the past many years ago for suicidal ideation while intoxicated. He had reported no prior history of suicide attempts. Outpatient psychiatric history: None currently. He had reported no history of medication trials for depression. Substance abuse history: He denies any history of illicit drug use. He had reported beginning alcohol use at the age of 15 and reports having been in numerous programs in the past for sobriety most recently at the adult teen challenge program in [facility]. He reports that he has received some counseling in the past for alcohol use. He is currently not receiving any services. Medical history: Degenerative disc disease, possible osteoarthritis in the knee. Surgical history: None Allergies: No known drug allergies Medications: Omeprazole, terbinafine, ibuprofen Legal history: The patient has a history of 2 DUIs and apparently was incarcerated for up to a year and a half in the distant past likely associated with his DUI. history: Patient served from [id number] in the [email or web address] having received an honorable discharge with no service connection. Family psychiatric history: Mother and maternal uncle had a significant history of alcohol dependence. Social history: The patient was born and raised in [place]. He had no contact with his biological father. His biological mother was young and was forced to give up his sister and the patient as he was placed in a foster home for 13 years. He states that he he eventually reunited and lived with his biological mother around the age of 16 and states that he was abandoned by his mother although his sister had returned to stay with the biological mother. The patient had reported that his mother is from drinking and driving accident many years ago. He had graduated from high school and at the age of 19 entered at the . He had denied any clear history of sexual physical or emotional abuse but stated that his foster mother was excessively mean. He reports that he had been before and is now . He has no children of his own but states having raised 2 children. 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 Meds NPU Home Medications ?Medication ?Instructions ?Recorded ?Confirmed ?Last Taken ?Type ibuprofen 800 mg tablet 800 mg PO DAILY PRN Pain 05/24/25 05/24/25 Unknown History omeprazole 20 mg capsule,delayed 20 mg PO DAILY 05/24/25 05/24/25 Unknown History release terbinafine HCl 250 mg tablet 250 mg PO DAILY 05/24/25 05/24/25 Unknown History Allergies Allergy/AdvReac Type Severity Reaction Status Date / Time No Known Allergies Allergy Verified 05/25/25 06:13 Mental Status Exam MSE Comments: The patient is a casually dressed pleasant male who was alert and oriented to person, place, time, and situation. His complexion was somewhat jesu. His gait was steady. His hygiene was fair. There was no evidence of any abnormal involuntary motor movements, tics, or tremors appreciated. His speech was normal in regards to rate, rhythm, and prosody. His mood was described as depressed. His affect was restricted and range and mood congruent. His thought process was linear, logical, and goal-directed. His thought content revealed no suicidal ideation or homicidal ideation currently. He denied any auditory or visual hallucinations and did not appear to be responding to internal stimuli. There was no evidence of delusional thinking. His attention span appeared fair. His insight was fair. His judgment was poor. His impulse control appeared limited. His recent and remote memory were grossly intact. Vitals/I&O/Wt Last Vital Signs Temp 97.9 F 05/25/25 06:40 Pulse 87 05/25/25 06:40 Resp 16 05/25/25 06:40 BP 124/81 05/25/25 06:40 Pulse Ox 96 05/25/25 06:40 O2 Del Method Room Air 05/25/25 06:40 Weight last 48 hrs Weight 77.111 kg Data NPU 05/24/25 11:22 05/24/25 11:22 A&P Assessment and plan 1. Depression, unspecified: 2. Suicidal ideation: 3. Alcohol intoxication: 4. Alcohol dependence: Plan: 54-year-old male with a history of alcohol dependence with strong genetic loading for alcoholism currently minimizing suicidal ideation but reporting this on admission with a history of depression and significant history of difficult childhood having lived in foster homes. He is refusing antidepressants at this time but was interested in help regarding his alcohol abuse. #1.? Engage patient in individual milieu and group therapy. #2?? Recommend sober living treatment at the highest level of care to which the patient is willing to commit #3??? CIWA for alcohol withdrawal #4?? TO-15 minute checks? #5?? Will attempt to gather collateral information, add naltrexone oral with patient agreeable to vivitrol IM. PDMP PDMP Reviewed: Not Reviewed Involuntary Hold Information Hold Status: Legal Status: 96 Hour Hold Attestations NPU Medical Necessity Statement*: Inpatient hospitalization is medically necessary and deemed to be the clinically appropriate intervention at this time. Medications will be adjusted and initiated as indicated.? The patient will be hospitalized for at least 2 midnights.? The patient?s likely length of stay is 3-4 days. ? Coding Level of Care Code Acute Code for [facility] Fwd Diagnoses Depression, unspecified F32.A Suicidal ideation R45.851 Alcohol intoxication F10.929 Alcohol dependence F10.20
[2025-05-26 06:00] VITALS: BP 136/91; PULSE 88; RESP 17; TEMP 36.7; O2SAT 98
[2025-05-26] MEDS: multivitamin therapeutic Tablet 1 TAB PO (09:19)
--- NOTE | 2025-05-26 12:23 | PC.NURSE ---
Called out pt. pharmacy and gave a verbal order for vivitrol monthly inj.
--- NOTE | 2025-05-26 16:32 | P.NPUPN_ITS ---
Subjective NPU 2 Subjective: 54-year-old male with alcohol abuse admi tted with suicidal ideation. He had denied any suicidal ideation today. He had reported that he was feeling better. He reported no side effects from his naltrexone oral given to him yesterday. He did not endorse desire to start an antidepressant. He had reported occasional depression and reported that he was bored and that is why he began drinking. He had reported no clear history of alcohol related withdrawal symptoms today. He had been pleasant and compliant on the milieu. Mental Status Exam 2 MSE Comments: The patient is a casually dressed pleasant male who was alert and oriented to person, place, time, and situation. His complexion was somewhat jesu. His gait was steady. His hygiene was fair. There was no evidence of any abnormal involuntary motor movements, tics, or tremors appreciated. His speech was normal in regards to rate, rhythm, and prosody. His mood was described as better. His affect was mildly restricted. His thought process was linear, logical, and goal-directed. His thought content revealed no suicidal ideation or homicidal ideation currently. He denied any auditory or visual hallucinations and did not appear to be responding to internal stimuli. There was no evidence of delusional thinking. His attention span appeared fair. His insight was fair. His judgment was poor. His impulse control appeared limited. His recent and remote memory were grossly intact. Vitals/I&O/Wt Last Vital Signs Temp 98.1 F 05/26/25 06:00 Pulse 88 05/26/25 06:00 Resp 17 05/26/25 06:00 BP 136/91 05/26/25 06:00 Pulse Ox 98 05/26/25 06:00 O2 Del Method Room Air 05/26/25 06:00 Data NPU 05/24/25 11:22 05/24/25 11:22 A&P Assessment and plan 1. Depression, unspecified: 2. Suicidal ideation: 3. Alcohol intoxication: 4. Alcohol dependence: Plan: 54-year-old male with a history of alcohol dependence with strong genetic loading for alcoholism currently minimizing suicidal ideation but reporting this on admission with a history of depression and significant history of difficult childhood having lived in foster homes. He is refusing antidepressants at this time but was interested in help regarding his alcohol abuse. #1.? Engage patient in individual milieu and group therapy. #2?? Recommend sober living treatment at the highest level of care to which the patient is willing to commit #3??? CIWA for alcohol withdrawal #4?? TO-15 minute checks? #5?? Will attempt to gather collateral information, Naltrexone 50mg daily with patient to switch to monthly vivitrol tommorow. PDMP PDMP Reviewed: Not Reviewed Involuntary Hold Information 2 Hold Status: Legal Status: 96 Hour Hold Attestations NPU 2 Medical Necessity Statement*: Inpatient hospitalization is medically necessary and deemed to be the clinically appropriate intervention at this time. Medications will be adjusted and initiated as indicated.? The patient?s likely length of stay is 1-2 days. ? Coding Level of Care Code Acute Code for g Fwd Diagnoses Depression, unspecified F32.A Suicidal ideation R45.851 Alcohol intoxication F10.929 Alcohol dependence F10.20
[2025-05-26 19:19] VITALS: BP 147/92; PULSE 66; RESP 16; TEMP 36.6; O2SAT 98
[2025-05-27 06:00] VITALS: BP 132/81; PULSE 80; RESP 18; TEMP 36.7; O2SAT 99
[2025-05-27] MEDS: multivitamin therapeutic Tablet 1 TAB PO (08:49)
[2025-05-27] MEDS: VIVITROL 380 MG 380 EACH IM (12:51)
[2025-05-27 13:15] VITALS: BP 143/97; PULSE 74; RESP 16; TEMP 36.4; O2SAT 100
--- NOTE | 2025-05-27 14:22 | P.NPUDS_ITS ---
Diagnoses at Discharge Discharge Diagnosis 1. Depression, unspecified: 2. Suicidal ideation: 3. Alcohol intoxication: 4. Alcohol dependence: Reason for Visit Reason for Visit: etoh, SI Brief History: History of Present Illness Colin Muhammad is a 54 year old male who presented to the emergency department with a blood alcohol level of 379 with the patient endorsing having thoughts of wanting to kill himself by using a gun. The patient was admitted involuntarily to the neuropsychiatric unit for further evaluation and treatment. On interview, the patient had reported that he had relapsed and has been using alcohol for primarily on the weekends. He reports that he has been consuming alcohol since the age of 15. He reports the longest period of sobriety was approximately 1-1/2 years. He states that he has been working and living at a motel in [place] for the past 4 months. He had stated that prior to that time [facility] to [facility] and maintain sobriety. He states that the presence of drugs at the [facility] had led him to leave that location. He reports that he has been attending [facility] substance abuse program in [place] and had been clean for more than a year having graduated that program in November 2024. He reports that in the past he has been admitted briefly for suicidal ideation to psychiatric unit several years ago. He had reported no history of alcohol related withdrawal seizures. He had reported having a high tolerance for alcohol and reported some history of having shakes. He has endorsed feeling more depressed and hopeless recently. He reports low energy and low motivation. He denied any history of psychosis. He did not endorse any history of ingris. He denied any history of nightmares or flashbacks. He does report continued alcohol use despite adverse consequences. Inpatient psychiatric history: He reports inpatient hospitalization in [place] in the past many years ago for suicidal ideation while intoxicated. He had reported no prior history of suicide attempts. Outpatient psychiatric history: None currently. He had reported no history of medication trials for depression. Substance abuse history: He denies any history of illicit drug use. He had reported beginning alcohol use at the age of 15 and reports having been in numerous programs in the past for sobriety most recently at the adult teen challenge program in [facility]. He reports that he has received some counseling in the past for alcohol use. He is currently not receiving any services. Medical history: Degenerative disc disease, possible osteoarthritis in the knee. Surgical history: None Allergies: No known drug allergies Medications: Omeprazole, terbinafine, ibuprofen Legal history: The patient has a history of 2 DUIs and apparently was incarcerated for up to a year and a half in the distant past likely associated with his DUI. history: Patient served from [id number] in the [employer] having received an honorable discharge with no service connection. Family psychiatric history: Mother and maternal uncle had a significant history of alcohol dependence. Social history: The patient was born and raised in [place]. He had no contact with his biological father. His biological mother was young and was forced to give up his sister and the patient as he was placed in a foster home for 13 years. He states that he he eventually reunited and lived with his biological mother around the age of 16 and states that he was abandoned by his mother although his sister had returned to stay with the biological mother. The patient had reported that his mother is from drinking and driving accident many years ago. He had graduated from high school and at the age of 19 entered at the . He had denied any clear history of sexual physical or emotional abuse but stated that his foster mother was excessively mean. He reports that he had been before and is now . He has no children of his own but states having raised 2 children. 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 Hospital Course Hospital Course Patient presented with a blood alcohol level of 357 which later peaked at 379 in the emergency department. He was placed on a alcohol withdrawal protocol. He appeared to respond well without any notable withdrawal symptoms. He had endorsed a significant history of alcohol abuse for several years and was agreeable to getting help in regards to reducing his cravings for alcohol. Naltrexone oral was started at 50 mg for 2 days with no noted side effects. The patient was eventually given Vivitrol intramuscularly on 05/27/2025 to aid with his alcohol dependence. During the hospitalization, the patient had routine laboratory studies which were within normal limits except for a few outliers.? Additionally, there was a general medical evaluation which was also within normal limits and revealed no new acute processes.? At the time of discharge, lethality was denied and psychosis was absent. Mood and anxiety were well managed.? The patient endorsed a plan to avoid all drugs of abuse and follow up with the aftercare recommendations of the treatment team.? The patient was evaluated and deemed to be absent credible lethality and had achieved the maximum benefit from an inpatient hospitalization, and so was discharged. ? Involuntary Hold Information Hold Status: Legal Status: 96 Hour Hold Mental Status Exam MSE Comments: The patient is a casually dressed pleasant male who was alert and oriented to person, place, time, and situation. His gait was steady. His hygiene was fair. There was no evidence of any abnormal involuntary motor movements, tics, or tremors appreciated. His speech was normal in regards to rate, rhythm, and prosody. His mood was described as better. His affect was brithter today. His thought process was linear, logical, and goal-directed. His thought content revealed no suicidal ideation or homicidal ideation currently. He denied any auditory or visual hallucinations and did not appear to be responding to interna l stimuli. There was no evidence of delusional thinking. His attention span appeared fair. His insight was fair. His judgment was improving. His impulse control appeared limited. His recent and remote memory were grossly intact. Discharge Data Studies Completed and Pending: Laboratory Results WBC 5.55 10^3/uL (3.2 9-11.43) 05/24/25 11:22 RBC 4.57 10^6/uL (3.8 5-5.65) 05/24/25 11:22 Hgb 13.10 g/dL (11.27 -16.99) 05/24/25 11:22 Hct 41.2 % (37-53) 05/24/25 11:22 MCV 90.2 fl (82-101) 05/24/25 11:22 MCH 28.7 pg (27-33) 05/24/25 11:22 MCHC 31.8 g/dL (30-55) 05/24/25 11:22 RDW 15.3 % (12.1-15.1 ) H 05/24/25 11:22 Plt Count 238 10^3/cmm (157 -399) 05/24/25 11:22 MPV 9.5 fL (7.4-10.4) 05/24/25 11:22 Neut % (Auto) 32.2 % 05/24/25 11:22 Lymph % (Auto) 43.1 % 05/24/25 11:22 [place] % (Auto) 15.3 % 05/24/25 11:22 Eos % (Auto) 8.3 % 05/24/25 11:22 Baso % (Auto) 0.9 % 05/24/25 11:22 Neut # (Auto) 1.79 10^3/uL (1.8 -7.7) L 05/24/25 11:22 Lymph # (Auto) 2.4 10^3/uL (0.8- 4.8) 05/24/25 11:22 [place] # (Auto) 0.9 10^3/uL (0.2- 0.9) 05/24/25 11:22 Eos # (Auto) 0.5 10^3/uL (0.0- 0.8) 05/24/25 11:22 Baso # (Auto) 0.1 10^3/uL (0.0- 0.1) 05/24/25 11:22 Nucleated RBC % (a uto) 0 % 05/24/25 11:22 Nucleated RBCs # 0.0 /100WBC 05/24/25 11:22 Sodium 141 mmol/L (136-1 45) 05/24/25 11:22 Potassium 4.1 mmol/L (3.5-5 .1) 05/24/25 11:22 Chloride 108 mmol/L (98-10 7) H 05/24/25 11:22 Carbon Dioxide 23 mmol/L (22-29) 05/24/25 11:22 Anion Gap 14.1 (5-19) 05/24/25 11:22 BUN 6 mg/dL (6-20) 05/24/25 11:22 Creatinine 0.7 mg/dL (0.7-1. 2) 05/24/25 11:22 GFR Calculation 118.4 mL/min (90- 130) 05/24/25 11:22 Glucose 87 mg/dL (65-115) 05/24/25 11:22 Calculated Osmolal ity 289 mOsm/kg (285- 295) 05/24/25 11:22 Calcium 8.3 mg/dL (8.5-10 .5) L 05/24/25 11:22 Total Bilirubin 0.2 mg/dL (0.15-1 .2) 05/24/25 11:22 AST 20 U/L (0-40) 05/24/25 11:22 ALT 16 U/L (0-41) 05/24/25 11:22 Alkaline Phosphata se 74 U/L (40-130) 05/24/25 11:22 Total Protein 6.6 g/dL (6.6-8.7 ) 05/24/25 11:22 Albumin 4.1 g/dL (3.5-5.2 ) 05/24/25 11:22 Globulin 2.5 g/dL (1.3-4.6 ) 05/24/25 11:22 Urine Color Yellow (Yellow) 05/24/25 11:26 Urine Appearance Clear (CLEAR) 05/24/25 11:26 Urine pH 5.5 (5-7) 05/24/25 11:26 Ur Specific Gravit y 1.004 (1.005-1.0 30) L 05/24/25 11:26 Urine Protein Negative (Negati ve) 05/24/25 11:26 Urine Glucose (UA) Negative (Normal ) 05/24/25 11:26 Urine Ketones Negative (Negati ve) 05/24/25 11:26 Urine Blood Negative (Negati ve) 05/24/25 11:26 Urine Nitrate Negative (Negati ve) 05/24/25 11:26 Urine Bilirubin Negative (Negati ve) 05/24/25 11:26 Urine Urobilinogen 0.2 mg/dL (Negati ve) 05/24/25 11:26 Ur Leukocyte Tabitha ase Negative (Negati ve) 05/24/25 11:26 Urine RBC 0-2 /hpf (0-2) 05/24/25 11:26 Urine WBC 0-5 /hpf (0-5) 05/24/25 11:26 Ur Squamous Epith Cells 0-5 /hpf (0-5) 05/24/25 11:26 Amorphous Sediment Not Reportable 05/24/25 11:26 Urine Bacteria None seen /hpf (N ONE) 05/24/25 11:26 Hyaline Casts 0-4 /lpf H 05/24/25 11:26 Salicylates < 0.3 mg/dL (3-10 ) L 05/24/25 11:22 Urine Opiates Scre en Negative ng/mL (N egative) 05/24/25 11:26 Acetaminophen < 5.0 ug/mL (10-3 0) L 05/24/25 11:22 Ur Barbiturates Sc reen Negative ng/mL (N egative) 05/24/25 11:26 Ur Phencyclidine S crn Negative ng/mL (N egative) 05/24/25 11:26 Ur Amphetamines Sc reen Negative ng/mL (N egative) 05/24/25 11:26 U Benzodiazepines Scrn Negative ng/mL (N egative) 05/24/25 11:26 Urine Cocaine Scre en Negative ng/mL (N egative) 05/24/25 11:26 U Marijuana (THC) Screen Negative ng/mL (N egative) 05/24/25 11:26 Ethyl Alcohol 379 mg/dL (0-10) H* 05/24/25 11:22 Vitals: Last Vital Signs Temp 97.6 F 05/27/25 13:15 Pulse 74 05/27/25 13:15 Resp 16 05/27/25 13:15 BP 143/97 05/27/25 13:15 Pulse Ox 100 05/27/25 13:15 O2 Del Method Room Air 05/27/25 06:00 Discharge Plan Discharge Patient Disposition: Home Condition: Stable Prescriptions: New folic acid 1 mg Tablet 1 mg PO DAILY 30 Days Qty: 30 1RF thiamine mononitrate (vit B1) [Vitamin B-1 (mononitrate)] 100 mg Tablet 100 mg PO DAILY 30 Days Qty: 30 1RF Vivitrol 380 mg suspension,extended rel recon 380 mg IM ONCE 28 Days Qty: 1 1RF Rx Instructions: Next due date for IM is 06/24/25. Continued ibuprofen 800 mg tablet 800 mg PO DAILY PRN (Reason: Pain) terbinafine HCl 250 mg tablet 250 mg PO DAILY omeprazole 20 mg capsule,delayed release(DR/EC) 20 mg PO DAILY Discharge Order = DC NOW: Discharge Order (Routine); Ordered 05/27/25 Ordered By: Mark Frye Referrals: [facility] [Outside] - 1-3 days Referral Note: You will get a call regarding a [facility] initial assessment date for services Discharge Diet: Usual diet Discharge Activity: Resume usual activity Patient Instructions: Alcohol Abuse, Naltrexone (By injection) (Vivitrol), Depression (DC), Opioid Safety, Pain Management, Patient Portal & Shyann Instructions Discharge Attestations NPU Time Spent in Discharge Care*: less than 30 min Specific Discharge Activities: Specific discharge activities: educating patient, discussing with bottle caser/social workers/dc planners and documenting/other paperwork Coding Level of Care Code Acute Code for [facility] Fwd Diagnoses Depression, unspecified F32.A Suicidal ideation R45.851 Alcohol intoxication F10.929 Alcohol dependence F10.20
[2025-05-27 14:34] VITALS: BP 143/97; PULSE 74; RESP 16; TEMP 36.4; O2SAT 100
== END 2025-05-27 15:56 | disposition home or self-care (01) | DRG 881 ==
LOC: ER 12:03 → NP 12:19
PROVIDERS: Admitting Provider Psychiatry & Neurology Psychiatry; Emergency Provider Family Medicine; Visit Provider Psychiatry & Neurology Psychiatry
DX: F32.A Depression, unspecified (principal); R45.851 Suicidal ideations; F10.229 Alcohol dependence with intoxication, unspecified; Y90.8 Blood alcohol level of 240 mg/100 ml or more; R45.1 Restlessness and agitation
CPT/HCPCS: 36415; 80053; 80306; 80307; 81001; 85025; 96372; 97150; 97165; 99285; J2060; J9999

== ENCOUNTER 2025-06-08 09:14 | Emergency (ER) | payer BC, MEDICAID, SELFPAY ==
--- NOTE | 2025-06-08 09:13 | XRR_ITS ---
PROCEDURE INFORMATION: Exam: XR Chest Exam date and time: 06/08/2025 9:26 AM Age: 54 years old Clinical indication: Pain; Angina pectoris; Additional info: Cp TECHNIQUE: Imaging protocol: Radiologic exam of the chest. Views: 1 view. COMPARISON: CT cervical spin wo con* [id number] 03/14/2025 5:08 PM FINDINGS: Lungs: Unremarkable. No consolidation. Pleural spaces: Unremarkable. No pleural effusion. No pneumothorax. Heart/Mediastinum: Unremarkable. No cardiomegaly. Bones/joints: Unremarkable. XR/XR chest 1V portable [id number] IMPRESSION: No acute findings.
[2025-06-08 09:17] VITALS: BP 161/92; PULSE 89; RESP 28; TEMP 36.8; O2SAT 95
--- NOTE | 2025-06-08 09:24 | ECG_ITS ---
[facility] Date: 2025-06[facility]08 Pat Name: Colin Muhammad Department: Room: Gender: Male Electric Distribution Checker: : 1970 Requested By: Doris Lozoya Order Number: [id number] Tapia MD: Chase Gonzalez M.D. Measurements Intervals [place] Rate: 82 P: 47 RI: 144 QRS: 21 QRSD: 89 T: 33 QT: 343 QTc: 401 Interpretive Statements SINUS RHYTHM Compared to ECG 03/14/2025 19:57:41 LOW VOLTAGE NO LONGER PRESENT Electronically Signed On 06-09-2025 21:44:40 CDT by Chase Gonzalez M.D. [email or web address]
--- NOTE | 2025-06-08 09:25 | ED_ITS ---
HPI - Chest Pain 2 General: Chief Complaint: Chest Pain Stated Complaint: chest pain Source: patient Mode of arrival: ambulatory Limitations: no limitations History of Present Illness: 54-year-old male states has been having epigastric along with chest pain that started this morning. He states he has been feeling sick like he is going to vomit with a burning sharp pain in the epigastric region. He denies any fevers he denies any worse improved factors rates his pain a 6 out of 10 currently Associated symptoms: Reports abdominal pain, nausea and vomiting; Deny dyspnea or fever(s) Related Data Home Medications ?Medication ?Instructions ?Recorded ?Confirmed ibuprofen 800 mg tablet 800 mg PO DAILY PRN Pain 06/08/25 omeprazole 20 mg capsule,delayed 20 mg PO DAILY 06/08/25 release terbinafine HCl 250 mg tablet 250 mg PO DAILY 05/24/25 06/08/25 Previous Rx's ?Medication ?Instructions ?Recorded folic acid 1 mg tablet 1 mg PO DAILY 30 days #30 ta bs 05/27/25 naltrexone microspheres 380 mg 380 mg IM ONCE 4 weeks #1 ea 05/27/25 intramuscular suspension,extended release (Vivitrol) thiamine mononitrate (vit B1) 100 100 mg PO DAILY 30 d ays #30 tabs 05/27/25 mg tablet (Vitamin B-1 (mononitrate)) ondansetron 4 mg disintegrating 4 mg PO Q6H PRN nausea and 06/08/25 tablet vomiting #14 tabs pantoprazole 40 mg tablet,delayed 40 mg PO DAILY #60 t abs 06/08/25 release (Protonix) Allergies Allergy/AdvReac Type Severity Reaction Status Date / Time No Known Allergies Allergy Verified 05/25/25 06:13 Review of Systems 2 Const: Denies: fever(s), chills, body aches or change in appetite ENMT: Denies: throat pain or dental pain Card: Reports: chest pain Resp: Denies: dyspnea GI: Reports: abdominal pain, nausea and vomiting; Denies: diarrhea : Denies: dysuria Musc: Denies: neck pain or back pain Skin/Breast: Denies: rash Neuro: Denies: headache(s) PFSH ED 2 PFSH: Medical History Psychiatric care Physical Exam 2 Const: COMMON NORMALS: no acute distress, patient oriented x3 and healthy appearing HENMT: COMMON NORMALS: normocephalic and atraumatic HEAD & SCALP: n ormocephalic and atraumatic Eye: COMMON NORMALS: conjunctivae normal CONJUNCTIVA: Yes conjunctivae normal Neck/C-Spine: COMMON NORMALS: full ROM and supple Chest: COMMONS NORMALS: normal inspection of the chest Resp: COMMON NORMALS: normal respiratory effort, No retractions, No use of accessory muscles and clear to auscultation bilaterally AUSCULTATION: clear to auscultation bilaterally Cardio: COMMON NORMALS: regular rate, regular rhythm and No murmurs present (Cardio) RATE: regular rate RHYTHM: regular rhythm GI: COMMON NORMALS: Normal to inspection, nondistended, normoactive bowel sounds present, Soft to palpation, non-tender and no masses PALPATION: Yes Soft to palpation Extremity: COMMON NORMALS: normal to inspection and full ROM Neuro: COMMON NORMALS: patient oriented x3, moves all extremities and no focal motor deficits Psych: COMMON NORMALS: mental status grossly normal, Normal thought process present and cooperative THOUGHT PROCESS: Normal thought process present Skin: COMMON NORMALS: no rashes or lesions noted and no wounds GENERAL SKIN EXAM: no rashes or lesions noted Course 2 Vital Signs: Vital signs: Vital Signs Temperature 98.3 F 06/08/25 09:17 Pulse Rate 89 06/08/25 09:17 Respiratory Rate 28 H 06/08/25 09:17 Blood Pressure 161/92 06/08/25 09:17 Pulse Oximetry 95 06/08/25 09:17 Oxygen Delivery Me thod Room Air 06/08/25 09:17 MDM - Chest Pain Medical Decision Making Patient presents with abdominal pain all chest pain is likely a gastritis he is much improved after GI cocktail and Zofran. His initial and repeat troponins are negative no signs of ACS or dissection or pulm embolism he stable for discharge we will prescribe him Protonix and Zofran he is to follow-up with PCP and return if worsening. I did discuss his lab findings and he states he feels much improved and does want to go home I informed he has any more pain he is to return Medical Records I reviewed the patient's medical records. Lab Data I reviewed the patient's lab results. 06/08/25 09:28 06/08/25 09:28 Radiology Impressions Chest X-Ray 06/08/25 09:13 IMPRESSION: No acute findings. Laboratory Results WBC 9.51 10^3/uL (3.29-11.43) 06/08/25 09: RBC 4.57 10^6/uL (3.85-5.65) 06/08/25 09: Hgb 13.10 g/dL (11.27-16.99) 06/08/25 09: Hct 39.8 % (37-53) 06/08/25 09: MCV 87.1 fl (82-101) 06/08/25 09: MCH 28.7 pg (27-33) 06/08/25 09: MCHC 32.9 g/dL (30-55) 06/08/25 09: RDW 14.6 % (12.1-15.1) 06/08/25 09:28 Plt Count 238 10^3/cmm (157-399) 06/08/25 09: MPV 9.6 fL (7.4-10.4) 06/08/25 09:28 Neut % (Auto) 73.5 % 06/08/25 09: Lymph % (Auto) 15.0 % 06/08/25 09: [place] % (Auto) 9.4 % 06/08/25 09: Eos % (Auto) 1.2 % 06/08/25 09: Baso % (Auto) 0.6 % 06/08/25: Neut # (Auto) 6.99 10^3/uL (1.8-7.7) 06/08/25 09: Lymph # (Auto) 1.4 10^3/uL (0.8-4.8) 06/08/25 09:28 [place] # (Auto) 0.9 10^3/uL (0.2-0.9) 06/08/25 09: Eos # (Auto) 0.1 10^3/uL (0.0-0.8) 06/08/25 09: Baso # (Auto) 0.1 10^3/uL (0.0-0.1) 06/08/25 09: Nucleated RBC % (auto) 0 % 06/08/25 09:28 Nucleated RBCs # 0.0 /100WBC 06/08/25 09:28 Sodium 133 mmol/L (136-145) L 06/08/25 09:28 Potassium 3.4 mmol/L (3.5-5.1) L 06/08/25 09:28 Chloride 98 mmol/L (98-107) 06/08/25 09:28 Carbon Dioxide 23 mmol/L (22-29) 06/08/25 09:28 Anion Gap 15.4 (5-19) 06/08/25 09:28 BUN 6 mg/dL (6-20) 06/08/25 09:28 Creatinine 0.7 mg/dL (0.7-1.2) 06/08/25 09:28 GFR Calculation 118.4 mL/min (90-130) 06/08/25 09:28 Glucose 127 mg/dL (65-115) H 06/08/25 09:28 Calculated Osmolality 275 mOsm/kg (285-295) L 06/08/25 09:28 Calcium 8.7 mg/dL (8.5-10.5) 06/08/25 09:28 Total Bilirubin 0.2 mg/dL (0.15-1.2) 06/08/25 09:28 AST 23 U/L (0-40) 06/08/25 09:28 ALT 14 U/L (0-41) 06/08/25 09:28 Alkaline Phosphatase 102 U/L (40-130) 06/08/25 09:28 Troponin T Baseline 8 ng/L (0-15) 06/08/25 09:28 Troponin T 120 Minute 15.05 ng/L (0-15) H 06/08/25 11:14 Delta Troponin T 7.05 ABS# (0-10) 06/08/25 11:14 Total Protein 6.8 g/dL (6.6-8.7) 06/08/25 09:28 Albumin 4.0 g/dL (3.5-5.2) 06/08/25 09:28 Globulin 2.8 g/dL (1.3-4.6) 06/08/25 09:28 Lipase 25 U/L (13-60) 06/08/25 09:28 All radiology interpretation(s) finalized by discharge EKG Data EKG 1: I personally reviewed and interpreted this EKG as follows: EKG interpretation date: 06/08/25 EKG interpretation time: 09:24 Interpretation: nsr hr [address] elevation qrs 89 qtc 384 EKG 2: I personally reviewed and interpreted this EKG as follows: EKG interpretation date: 06/08/25 EKG interpretation time: 11:06 Interpretation: nsr hr [address] elevation qrs 94 qtc 395 Clincial Decision Support The following clinical decision support tools were used to aid in care of the patient HEART Score -> History: Slightly Suspicous, EKG: Normal, Age: 45-64 yrs, Risk Factors: No Risk Factors Known, Troponin: Baseline Trop <16 ng/L. Resulting HEART Score: 1. Discharge Plan Discharge Patient Disposition: Home Clinical Impression: Chest pain, Abdominal pain Condition: Stable Prescriptions: New ondansetron 4 mg tablet,disintegrating 4 mg PO Q6H PRN (Reason: nausea and vomiting) Qty: 14 0RF pantoprazole [Protonix] 40 mg tablet,delayed release (DR/EC) 40 mg PO DAILY Qty: 60 0RF No Action ibuprofen 800 mg tablet 800 mg PO DAILY PRN (Reason: Pain) terbinafine HCl 250 mg tablet 250 mg PO DAILY omeprazole 20 mg capsule,delayed release(DR/EC) 20 mg PO DAILY folic acid 1 mg Tablet 1 mg PO DAILY 30 Days Qty: 30 1RF thiamine mononitrate (vit B1) [Vitamin B-1 (mononitrate)] 100 mg Tablet 100 mg PO DAILY 30 Days Qty: 30 1RF Vivitrol 380 mg suspension,extended rel recon 380 mg IM ONCE 28 Days Qty: 1 1RF Rx Instructions: Next due date for IM is 06/24/25. Discharge Orders: Discharge ED (Routine); Ordered 06/08/25 Ordered By: Doris Lozoya Discharge Diet: Advance as tolerated Discharge Activity: Resume usual activity Patient Instructions: Abdominal Pain (ED) Print Language: Swedish Coding Level of Care Code ED Bedspread Cutter for Diann Clark
[2025-06-08 09:34] LABS: Hematocrit 39.8 % (37-53); Hemoglobin 13.10 g/dL (11.27-16.99); Mean Corpuscular HGB Conc 32.9 g/dL (30-55); Mean Corpuscular Hemoglobin 28.7 pg (27-33); Mean Corpuscular Volume 87.1 fl (82-101); Nucleated Red Blood Cells % 0 %; Platelet Count 238 10^3/cmm (157-399); Red Blood Count 4.57 10^6/uL (3.85-5.65); White Blood Count 9.51 10^3/uL (3.29-11.43)
[2025-06-08 09:53] LABS: Troponin(5th) Baseline 8 ng/L (0-15)
[2025-06-08 10:00] LABS: Alanine Aminotransferase 14 U/L (0-41); Albumin Level 4.0 g/dL (3.5-5.2); Alkaline Phosphatase 102 U/L (40-130); Anion Gap 15.4 (5-19); Aspartate Amino Transferase 23 U/L (0-40); Blood Urea Nitrogen 6 mg/dL (6-20); Calcium 8.7 mg/dL (8.5-10.5); Carbon Dioxide 23 mmol/L (22-29); Chloride 98 mmol/L (98-107); Creatinine Clr Calc Pharmacy 131.0900; Globulin 2.8 g/dL (1.3-4.6); Glucose 127 mg/dL (65-115); Lipase 25 U/L (13-60); Osmolality Calculated 275 mOsm/kg (285-295); Potassium 3.4 mmol/L (3.5-5.1); Sodium 133 mmol/L (136-145); Total Protein 6.8 g/dL (6.6-8.7)
[2025-06-08 10:55] VITALS: BP 133/70; PULSE 75; RESP 20; O2SAT 99
[2025-06-08 11:00] VITALS: BP 161/84; PULSE 79; RESP 18; O2SAT 100
--- NOTE | 2025-06-08 11:06 | ECG_ITS ---
[facility]: [facility]25-[facility]-08 Pat Name: Colin Muhammad Department: Room: Gender: Male Religious Activities Director: : 1970 Requested By: Doris Lozoya Order Number: [id number] Regina MD: Chase Gonzalez M.D. Measurements Intervals [place] Rate: 73 P: 49 CO: 135 QRS: 23 QRSD: 94 T: 47 QT: 369 QTc: 408 Interpretive Statements SINUS RHYTHM Compared to ECG 06/08/2025 09:24:28 No significant changes Electronically Signed On 06-09-2025 22:21:02 CDT by Chase Gonzalez M.D. [email or web address]
[2025-06-08 11:30] VITALS: BP 149/94; PULSE 78; RESP 20; O2SAT 100
[2025-06-08 11:53] LABS: Troponin 5 2HR 15.05 ng/L (0-15); Troponin 5 2HR Delta 7.05 ABS# (0-10)
[2025-06-08 12:10] VITALS: BP 154/94; PULSE 79; O2SAT 100
== END 2025-06-08 12:12 | disposition home or self-care (01) ==
PROVIDERS: Emergency Provider Emergency Medicine; PCP Family Medicine
DX: R07.9 Chest pain, unspecified (principal); R10.9 Unspecified abdominal pain
CPT/HCPCS: 36415; 71045; 80053; 83690; 84484; 85025; 93005; 99285